=== PATIENT | male | born 1970 | race African-American/Black ===

== ENCOUNTER 2019-11-30 11:25 | Inpatient (IN) ==
[2019-11-30] MEDS ORDERED: TUBERSOL ID ONE (13:40)
[2019-11-30] MEDS ORDERED: ZOFRAN ODT PO PRN (13:40)
[2019-11-30] MEDS ORDERED: SALINE LOCK IV FLUID XX ONE ×2 (13:40→13:42)
[2019-11-30] MEDS ORDERED: NICODERM PATCH TD PRN (13:40)
[2019-11-30] MEDS ORDERED: DULCOLAX PR PRN (13:40)
[2019-11-30] MEDS ORDERED: MAALOX PLUS LIQUID PO PRN (13:40)
[2019-11-30] MEDS ORDERED: TYLENOL PO PRN (13:40)
[2019-11-30] MEDS ORDERED: IMODIUM PO PRN (13:40)
[2019-11-30] MEDS ORDERED: D5W 1,000 ML IV PRN (13:40)
[2019-11-30] MEDS ORDERED: PHENOBARBITAL IV PRN (13:40)
[2019-11-30] MEDS ORDERED: BENTYL PO PRN (13:40)
[2019-11-30] MEDS ORDERED: SENOKOT PO PRN (13:40)
[2019-11-30] MEDS ORDERED: ZOFRAN IV PRN (13:40)
[2019-11-30] MEDS ORDERED: MOTRIN PO PRN (13:40)
[2019-11-30 14:20] LABS: HEMATOCRIT 41.7 % (42.0-52.0); HEMOGLOBIN 13.7 g/dL (14.0-18.0); MCH 30.1 PG (27-31); MCHC 32.9 g/dL (33-37); MCV 91.6 FL (81-99); MPV 10.2 FL (7.4-10.4); RBC 4.55 XMIL (4.7-6.1); RDW 13.5 % (11.5-14.5); WBC 4.93 X1000 (4.8-10.8)
[2019-11-30] MEDS: LIBRIUM PO SCH ×2 (14:27→21:05)
[2019-11-30] MEDS ORDERED: M.V.I.-12 10 ML, FOLIC ACID 1 MG, MAGNESIUM SULFATE 1 GM, THIAMINE 100 MG in NS 1,000 ML IV ONE (14:30)
[2019-11-30 14:41] LABS: AMYLASE 77 U/L (20-200); LIPASE 33 U/L (13-60)
[2019-11-30 14:44] LABS: PROTIME 12.8 Seconds (11.0-16.0)
[2019-11-30 14:45] LABS: INR 0.92
[2019-11-30 15:03] LABS: AGAP 12; ALBUMIN 4.4 g/dL (3.5-5.0); ALKALINE PHOSPHATASE 42 U/L (32-122); BUN 18 mg/dL (8-22); CALCIUM 9.1 mg/dL (8.8-10.2); CHLORIDE 105 mmol/L (98-107); COSMO 283; ESTIMATED GFR > 60; GLUCOSE 98 mg/dL (70-104); GOT 38 U/L (10-34); GPT 53 U/L (10-44); POTASSIUM 4.1 mmol/L (3.5-5.1); SODIUM 141 mmol/L (136-145); TCO2 24 mmol/L (25-35); TOTAL PROTEIN 7.6 g/dL (6.3-8.3)
[2019-11-30 17:45] LABS: URINE SOURCE CLEAN CATCH
[2019-11-30 17:48] LABS: BILIRUBIN URINE NEGATIVE (NEGATIVE); BLOOD URINE NEGATIVE (NEGATIVE); COLOR YELLOW; GLUCOSE URINE NEGATIVE (NEGATIVE); KETONE URINE NEGATIVE (NEGATIVE); LEUKOCYTES URINE NEGATIVE (NEGATIVE); NITRITE URINE NEGATIVE (NEGATIVE); PROTEIN URINE TRACE mg/dL (NEGATIVE); SP GRAVITY URINE 1.026; TURBIDITY URINE CLEAR (CLEAR); UR EPITHELIAL CELLS <10 /HPF (<10); URINE BACTERIA NEGATIVE /HPF; URINE RBC <10 /HPF (<10); URINE WBC <10 /HPF (<10); UROBILINOGEN URINE NORMAL (NORMAL)
[2019-11-30 17:58] LABS: UR AMPHETAMINES QUAL NONE DETECTED (NONE DETECT); UR BARBITUATES QUAL NONE DETECTED (NONE DETECT); UR BENZODIAZEPIN QUAL NONE DETECTED (NONE DETECT); UR CANNABINOIDS QUAL NONE DETECTED (NONE DETECT); UR COCAINE QUAL NONE DETECTED (NONE DETECT); UR METHADONE QUAL NONE DETECTED (NONE DETECT); UR METHAMPHETAMINE QUAL NONE DETECTED (NONE DETECT); UR OPIATES QUAL NONE DETECTED (NONE DETECT); UR OXYCODONE QUAL NONE DETECTED (NONE DETECT); UR PCP QUAL NONE DETECTED (NONE DETECT); UR PROPOXYPHENE QUAL NONE DETECTED (NONE DETECT); UR TCA QUAL PRESUMPTIVE POSITIVE (NONE DETECT)
[2019-11-30] MEDS: SEROQUEL PO PRN (21:04)
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
[2019-12-01] MEDS: LIBRIUM PO SCH ×4 (02:41→20:34)
[2019-12-01] MEDS: PROTONIX PO SCH (06:16)
[2019-12-01] MEDS: FOLIC ACID PO SCH (09:17)
[2019-12-01] MEDS: VITAMIN B-1 PO SCH (09:18)
[2019-12-01] MEDS: THERA M PLUS PO SCH (09:18)
--- NOTE | 2019-12-01 13:47 | PROGRESS NOTE ---
DATE: 12/01/2019 SUBJECTIVE: Patient notes overall he is feeling better. Denies any fevers or chills. PHYSICAL EXAMINATION: Vital Signs: Reviewed. Temperature 98 degrees, pulse 85, respiratory rate 18, BP 140/80. General: Patient is pleasant; he is in no distress. HEENT: Normocephalic. Neck: Supple. Cardiovascular: Regular rate. Chest: Clear. Abdomen: Soft. Extremities: Moves all extremities. Neurologic: No changes. ASSESSMENT: 1. Nausea and vomiting. 2. Abdominal pain. 3. Myalgias. 4. Paresthesias. 5. Paroxysmal sweating. 6. Alcohol abuse withdrawal and stabilization. PLAN: We are going to continue patient in the hospital. Continue to follow further orders as needed. cc: Ankur Garza MD
[2019-12-01] MEDS: ATARAX PO PRN ×2 (17:48→23:58)
[2019-12-01] MEDS: SEROQUEL PO PRN (20:35)
[2019-12-01] MEDS: ROBAXIN PO PRN (20:35)
[2019-12-01] MEDS: DESYREL PO PRN (23:59)
[2019-12-02] MEDS: LIBRIUM PO SCH ×4 (06:06→21:18)
[2019-12-02] MEDS: PROTONIX PO SCH ×2 (06:44→08:17)
[2019-12-02] MEDS: VITAMIN B-1 PO SCH (08:16)
[2019-12-02] MEDS: THERA M PLUS PO SCH (08:16)
[2019-12-02] MEDS: FOLIC ACID PO SCH (08:18)
--- NOTE | 2019-12-02 20:54 | PROGRESS NOTE ---
DATE: 12/02/2019 SUBJECTIVE: Patient notes that he is feeling a lot better. Denies any fevers, chills. Denies any tremors. PHYSICAL EXAMINATION: Vital Signs: Reviewed. General: He is awake, alert. He is in no distress. HEENT: Normocephalic. Neck: Supple. Cardiovascular: Regular rate. Chest: Clear. Abdomen: Soft. Extremities: Moves all extremities. Neurologic: No changes. ASSESSMENT: 1. Nausea and vomiting. 2. Abdominal pain. 3. Myalgias. 4. Paresthesias. 5. Alcohol abuse, withdrawal and stabilization. PLAN: We are going to continue patient in the hospital, continue to wean Librium and we will follow. cc: Ankur Garza MD
[2019-12-02] MEDS: SEROQUEL PO PRN (21:18)
[2019-12-02] MEDS: ATARAX PO PRN (23:29)
[2019-12-02] MEDS: DESYREL PO PRN (23:29)
[2019-12-03] MEDS: PROTONIX PO SCH (06:31)
[2019-12-03] MEDS: CYMBALTA PO SCH (08:59)
[2019-12-03] MEDS: FOLIC ACID PO SCH (08:59)
[2019-12-03] MEDS: FLOMAX PO SCH (08:59)
[2019-12-03] MEDS ORDERED: PROTONIX PO SCH (09:00)
[2019-12-03] MEDS: THERA M PLUS PO SCH (09:00)
[2019-12-03] MEDS: VITAMIN B-1 PO SCH (09:00)
[2019-12-03] MEDS: REMERON PO SCH ×3 (09:00→21:46)
[2019-12-03] MEDS: LIBRIUM PO SCH ×2 (09:00→21:46)
[2019-12-03] MEDS ORDERED: SEROQUEL PO SCH (21:00)
[2019-12-03] MEDS ORDERED: TRILEPTAL PO SCH (21:00)
[2019-12-03] MEDS: ROBAXIN PO PRN (21:46)
--- NOTE | 2019-12-03 21:51 | PROGRESS NOTE ---
DATE: 12/03/2019 SUBJECTIVE: Patient with no new complaints. States overall he is feeling much better. PHYSICAL: Vital signs reviewed. He is awake, alert.HEENT: Normocephalic. Neck: Supple. CV: Regular rate. Chest: Clear. Abdomen: Soft. Extremities: Moves all extremities. ASSESSMENT: 1. Nausea, vomiting. 2. Abdominal pain . 3. Myalgias . 4. Paresthesias. 5. Paroxysmal sweating. 6. Alcohol abuse withdrawal and stabilization. PLAN: We are going continue patient in the hospital, continue to follow, further orders as needed. Continue to wean Librium, hopefully can transition to rehab soon. cc: Ankur Garza MD
[2019-12-04] MEDS: REMERON PO SCH (08:59)
[2019-12-04] MEDS: VITAMIN B-1 PO SCH (08:59)
[2019-12-04] MEDS: PROTONIX PO SCH (08:59)
[2019-12-04] MEDS: FOLIC ACID PO SCH (08:59)
[2019-12-04] MEDS: CYMBALTA PO SCH (08:59)
[2019-12-04] MEDS: LIBRIUM PO SCH (08:59)
[2019-12-04] MEDS: FLOMAX PO SCH (08:59)
[2019-12-04] MEDS: THERA M PLUS PO SCH (08:59)
[2019-12-04] MEDS ORDERED: VIVITROL IM ONE (12:42)
[2019-12-04 13:42] VITALS: BP 143/95
== END 2019-12-04 13:59 | disposition home or self-care (01) | DRG 897 ==
LOC: P.MEDSURG 12:45
PROVIDERS: ADMIT Family Medicine; ATTEND Family Medicine